=== PATIENT | male | born 1950 | race Caucasian/White ===

== ENCOUNTER 2020-01-19 08:26 | Outpatient (CLI) | payer MEDICARE, SELFPAY ==
--- NOTE | ~2020-01-19 | CT_ITS ---
EXAMINATION: CT abdomen pelvis wo con DATE: 01/19/2020 09:01 INDICATION: Gross hematuria TECHNIQUE: Computed tomography (CT) of the abdomen and pelvis was performed without intravenous contr ast. Automated exposure control and iterative reconstruction technique were employed. Exam dose: 116 7.28 mGy-cm total exam DLP. COMPARISON: None. FINDINGS: There is mild discoid atelectasis or scarring in the lower lung zones bilaterally. No pulmo nary infiltrate or consolidation or pulmonary mass lesion is detected. Normal heart size. No pericardial or pleural effusion. Coronary artery calcifications. The liver, gallbladder, bile ducts, spleen are unremarkable. There is pancreatic atrophy. No pancreat ic mass lesion or calcification or pancreatic duct dilatation is evident. Normal morphology of the adrenal glands. No urinary tract calculus or hydroureteronephrosis. No renal space occupying mass lesion is evident. There is extensive calcification of the abdominal aorta and calcification at the origin of the superi or mesenteric and right renal arteries. No abdominal aortic aneurysm. No intraperitoneal or retroperi toneal or pelvic mass lesion or adenopathy or ascites. There is prostate enlargement. There is suggestion of prior TURP; recommend clinical correlation with surgical history. Penile implant device. The urinary bladder appears unremarkable on this limited noncontrast examination. Status post colectomy. Right lower quadrant ileostomy. Small sliding hiatal hernia. Small fat-containing umbilical hernia. No suspicious osteolytic or osteoblastic lesions are noted. Degenerative change of the thoracic and lumbar spine. Status post posterior and interbody spinal fusion at L4-L5. IMPRESSION: Reviewed, dictated and finalized at Location A. Reviewed, dictated and finalized at location B. IMPRESSION:
--- NOTE | ~2020-01-19 | XR_ITS ---
XR abdomen/kub 1V DATE: 01/19/2020 08:59 INDICATION: Gross hematuria TECHNIQUE: AP projection, 2 views COMPARISON: 01/19/[address] abdomen pelvis FINDINGS: Status post interbody and posterior spinal fusion at L4-5. Penile implant. The psoas shadows are intact. No visceromegaly is evident. The bowel gas pattern is unremarkable, wit hout evidence of obstruction. Degenerative changes of the thoracic and lumbar spine. IMPRESSION: Nonspecific abdomen Reviewed, dictated and finalized at Location A. Reviewed, dictated and finalized at location B. IMPRESSION: Nonspecific abdomen
== END 2020-01-19 08:27 | disposition home or self-care (01) ==
LOC: ANHIMG 08:34
PROVIDERS: PCP Internal Medicine; Visit Provider Nurse Practitioner Adult Health
DX: R31.0 Gross hematuria (principal); N40.0 Benign prostatic hyperplasia without lower urinary tract symptoms; K44.9 Diaphragmatic hernia without obstruction or gangrene
CPT/HCPCS: 74018; 74176

== ENCOUNTER 2020-01-31 13:30 | Outpatient (CLI) | payer MEDICARE, SELFPAY ==
[2020-01-31 13:58] LABS: Basophils Percent Auto 0.3 % (0.2-1.2); Eosinophils Percent Auto 0.3 % (0-4.4); Hematocrit 42.9 % (42.0-52.0); Hemoglobin 14.4 g/dL (14.0-18.0); Immature Granulocyte Absolute 0.06 K/mm3 (0.00-0.031); Immature Granulocyte Percent A 0.4 % (0-0.5); Lymphocytes Absolute Auto 1.95 K/mm3 (0.9-3.2); Lymphocytes Percent Auto 13.4 % (18.3-44.2); Mean Corpuscular HGB Conc 33.6 g/dl (32-36); Mean Corpuscular Hemoglobin 28.5 pg (26-34); Mean Platelet Volume 9.9 fl (7.4-10.4); Monocytes Absolute Auto 1.7 K/mm3 (0.1-0.6); Monocytes Percent Auto 11.3 % (2.6-8.5); Neutrophils Absolute Auto 10.8 K/mm3 (1.3-6.7); Neutrophils Percent Auto 74.3 % (45.5-73.1); Platelet Count Result 183 k/mm3 (150-375); Red Blood Count 5.05 M/mm3 (4.6-6.20); Red Cell Distribution Width 13.6 % (11.5-14.5); White Blood Count 14.6 K/mm3 (4.5-10.0)
[2020-01-31 14:08] LABS: Chloride 95 mmol/L (98-107)
[2020-01-31 14:09] LABS: Lactic Acid 1.2 mmol/L (0.7-2.1)
[2020-01-31 14:13] LABS: Alanine Aminotransferase 40 U/L (4-50); Albumin Level 4.4 g/dL (3.5-5.1); Alkaline Phosphatase 88 U/L (38-126); Amylase 48 U/L (30-110); Anion Gap 9 mmol/L (8-16); Aspartate Amino Transferase 26 U/L (17-59); Bilirubin,Total 1.7 mg/dL (0.2-1.3); Blood Urea Nitrogen 14 mg/dL (9-20); Carbon Dioxide 29 mmol/L (22-30); Estimated Glomerular Filt Rate 60; Glucose 204 mg/dL (75-110); Lipase 55 U/L (23-300); Potassium 4.4 mmol/L (3.4-5.0); Sodium 133 mmol/L (137-145)
[2020-01-31 14:22] LABS: NT Pro B Type Natriuretic Pept 119 PG/ML (5-100); Troponin I < 0.012 ng/mL (0.000-0.034)
== END 2020-01-31 13:31 | disposition home or self-care (01) ==
PROVIDERS: PCP Internal Medicine; Visit Provider Internal Medicine
DX: N39.0 Urinary tract infection, site not specified (principal); R06.02 Shortness of breath
CPT/HCPCS: 36415; 80053; 82150; 83605; 83690; 83880; 84484; 85025

== ENCOUNTER 2020-02-05 10:14 | Outpatient (RCR) | payer MEDICARE, SELFPAY ==
[2020-02-05 11:20] LABS: Anion Gap 9 mmol/L (8-16); Blood Urea Nitrogen 12 mg/dL (9-20); Calcium 9.2 mg/dL (8.4-10.2); Carbon Dioxide 24 mmol/L (22-30); Chloride 98 mmol/L (98-107); Estimated Glomerular Filt Rate 54; Glucose 182 mg/dL (75-110); Potassium 4.5 mmol/L (3.4-5.0); Sodium 131 mmol/L (137-145)
== END 2020-05-05 23:59 | disposition home or self-care (01) ==
LOC: ANHLAB 10:14
PROVIDERS: PCP Internal Medicine; Visit Provider Internal Medicine
DX: N39.0 Urinary tract infection, site not specified (principal)
CPT/HCPCS: 36415; 80048

== ENCOUNTER 2020-02-26 10:11 | Outpatient (CLI) | payer MEDICARE, SELFPAY ==
[2020-02-26 11:19] LABS: Add Urine Microscopic? YES; Appearance Urine Clear (Clear); Bacteria Urine Trace /hpf; Bilirubin Urine Negative (Negative); Blood Urine Negative (Negative); Color Urine Yellow (Yellow); Glucose Urine UA 2+ mg/dL (Negative); Ketones Urine Negative (Negative); Leukocyte Esterase Ur Negative LEU/UL (Negative); Mucus Urine Rare /lpf; Nitrate Urine Negative (Negative); Protein Urine Negative (Negative); RBC Urine 0-2 /hpf (0-2); Specific Grav Ur 1.018 (1.001-1.035); Squamous Epithelial Cell Urine Rare /hpf (Few); Urobilinogen Urine Negative mg/dL (<2.0); WBC Urine 0-3 /hpf
[2020-02-26 13:21] LABS: Alanine Aminotransferase 24 U/L (4-50); Alkaline Phosphatase 70 U/L (38-126); Anion Gap 9 mmol/L (8-16); Aspartate Amino Transferase 24 U/L (17-59); Bilirubin,Total 0.8 mg/dL (0.2-1.3); Blood Urea Nitrogen 14 mg/dL (9-20); Calcium 8.8 mg/dL (8.4-10.2); Carbon Dioxide 26 mmol/L (22-30); Chloride 99 mmol/L (98-107); Estimated Glomerular Filt Rate > 60; Glucose 200 mg/dL (75-110); Potassium 4.4 mmol/L (3.4-5.0); Sodium 134 mmol/L (137-145)
== END 2020-02-26 10:12 | disposition home or self-care (01) ==
PROVIDERS: PCP Internal Medicine; Visit Provider Internal Medicine
DX: N39.0 Urinary tract infection, site not specified (principal); E80.6 Other disorders of bilirubin metabolism
CPT/HCPCS: 36415; 80053; 81001

== ENCOUNTER 2020-03-26 10:40 | Outpatient (CLI) | payer MEDICARE, SELFPAY ==
--- NOTE | ~2020-03-26 | XR_ITS ---
XR lumbar spine 2-3V DATE: 03/26/2020 11:13 INDICATION: Low back pain radiating to left buttock TECHNIQUE: AP, lateral, coned lateral lumbosacral views COMPARISON: None FINDINGS: Status post posterior and interbody spinal surgical fusion at L4-5. Diffuse idiopathic skeletal hyperostosis of the lumbar and lower thoracic spine. Moderate osteopenia. No fracture, bone destruction or spondylolisthesis is evident. The lumbar pedicles appear intact. The sacroiliac joints appear normal. IMPRESSION: Status post interbody and posterior surgical fusion at L4-5 Diffuse idiopathic skeletal hyperostosis of the lower thoracic and lumbar spine Osteopenia Reviewed, dictated and finalized at location A. E TRAVEL
== END 2020-03-26 10:41 | disposition home or self-care (01) ==
LOC: ANHIMG 10:45
PROVIDERS: PCP Internal Medicine; Visit Provider Internal Medicine
DX: M54.5 Low back pain (principal); Z98.1 Arthrodesis status; M85.88 Other specified disorders of bone density and structure, other site
CPT/HCPCS: 72100

== ENCOUNTER → 2020-04-10 10:44 | Outpatient (CLI) | payer MEDICARE, SELFPAY ==
--- NOTE | ~2020-04-10 | MR_ITS ---
EXAMINATION: MR lumbar spine wo con DATE: 04/10/2020 11:46 INDICATION: Lumbar radiculopathy. Low back pain. Left hip pain. TECHNIQUE: Magnetic resonance imaging (MRI) of the lumbar spine was performed without intravenous con trast. Sequences included sagittal T2-weighted FSE, sagittal STIR FSE, sagittal T1-weighted FSE, and axial T2-weighted FSE. COMPARISON: Lumbar spine radiographs 03/26/2020 FINDINGS: There is 3 degrees levocurvature of lumbar spine. Vertebral body heights are normal. There are changes of anterior and posterior fusion procedures at L4-L5 with interbody device and pedicle sc rews. There is mildly decreased disc height at L3-L4 and moderately decreased disc height at L5-S1. O sseous central spinal canal is developmentally small at L3 and L4. The distal spinal cord signal inte nsity is normal. The conus medullaris is at L1. The following disc levels are specifically discussed: L1-L2: The disc is bulging. There is moderate bilateral facet joint osteoarthritis. There is moderate neural foraminal stenosis. There is mild central canal stenosis. L2-L3: The disc is bulging. There is severe right and moderate left facet joint osteoarthritis. There is mild right neural foraminal stenosis. There is mild central canal stenosis. L3-L4: The disc is bulging. There is severe bilateral facet joint osteoarthritis. There is moderate r ight and mild left neural foraminal stenosis. There is mild central canal stenosis. L4-L5: There is mild bilateral facet joint hypertrophy. There is moderate right and mild left neural foraminal stenosis. There is mild central canal stenosis. L5-S1: The disc is bulging. There is mild bilateral facet joint osteoarthritis. There is moderate jany ateral neural foraminal stenosis. There is mild central canal stenosis. IMPRESSION: 1. Moderate lumbar spondylosis. 2. Anterior and posterior fusion procedures at L4-L5. Reviewed, dictated and finalized at location A. STOCK HANDLER
== END ==
PROVIDERS: Visit Provider Nurse Practitioner Family
DX: M47.26 Other spondylosis with radiculopathy, lumbar region (principal); Z98.1 Arthrodesis status
CPT/HCPCS: 72148

== ENCOUNTER 2020-09-17 13:03 | Outpatient (CLI) | payer MEDICARE, SELFPAY ==
--- NOTE | ~2020-09-17 | US_ITS ---
EXAMINATION: US venous doppler LE RT EXAM DATE: 09/17/2020 13:38 INDICATION: Right calf pain. TECHNIQUE: Multiple grayscale, color flow and Doppler images of the right lower extremity deep venous system were obtained and reviewed. There is no prior study for comparison. FINDINGS: The right common femoral, femoral and profunda veins demonstrate normal color flow, respira tory variation, augmentation and compressibility. Compressibility, color flow confirmed within the r ight popliteal, posterior tibial, peroneal, and greater saphenous veins. There is a small Sumner's cy st measuring 2.1 x 2.8 x 0.8 cm IMPRESSION: 1. No right lower extremity deep venous thrombosis. 2. Small Sumner's cyst. Reviewed, dictated and finalized at location B.
== END 2020-09-17 13:04 | disposition home or self-care (01) ==
PROVIDERS: PCP Internal Medicine; Visit Provider Internal Medicine
DX: M79.661 Pain in right lower leg (principal); M71.21 Synovial cyst of popliteal space [Baker], right knee
CPT/HCPCS: 93971

== ENCOUNTER 2020-11-12 09:26 | Outpatient (CLI) | payer MEDICARE, SELFPAY ==
--- NOTE | 2020-11-12 | EST_ITS ---
Patient Info Name: Giorgio Pope Age: 70 years : 1950 Gender: Male Ht: 67 in Wt: 226 lbs BSA: 2.24 m2 HR: 78 bpm BP: 135 / 82 mmHg Heart Rhythm: Sinus Arrhythmia Exam Date: 11/12/2020 9:44 AM Exam Location: [facility] Stress Patient Status: Outpatient Admit Date: 11/12/2020 Staff Ordering Physician: JaquanNatalia MD Attending Provider: JaquanNatalia MD Exercise Technologist: Briana Liang CT Exercise Physician: Fina Walker MD Exam Type: CA stress test treadmill Study Info An exercise stress test was performed. Summary 1. Slightly sub maximal stress test with patient reaching 83% of predicted maximal heart rate, but no ischemic EKG changes at this level of exercise. 2. Hypertensive blood pressure response, reaching 209/83 mmHg. 3. No exercise-induced chest pain. 4. Very poor exercise tolerance, only 3 minutes of exercise, possibly due to hypertension or other problems. 5. Consider further testing (stress Lexiscan? Echo?) if heart disease is clinically suspected. Protocol: Anival Stress ECG Details Stage: REST Duration (min): 1 min : 28 sec Speed (mph): 0.0 Grade (%): 0 HR (bpm): 77 SBP (mmHg): 135 DBP (mmHg): 82 METS: --- Stage: REST Duration (min): 6 min : 39 sec Speed (mph): 0.0 Grade (%): 0 HR (bpm): 78 SBP (mmHg): 135 DBP (mmHg): 82 METS: --- Stage: STAGE 1 Duration (min): 1 min : 0 sec Speed (mph): 1.7 Grade (%): 10 HR (bpm): 103 SBP (mmHg): 135 DBP (mmHg): 82 METS: --- Stage: STAGE 1 Duration (min): 2 min : 0 sec Speed (mph): 1.7 Grade (%): 10 HR (bpm): 115 SBP (mmHg): 135 DBP (mmHg): 82 METS: --- Stage: STAGE 1 Duration (min): 3 min : 0 sec Speed (mph): 1.7 Grade (%): 10 HR (bpm): 124 SBP (mmHg): 209 DBP (mmHg): 83 METS: --- Stage: RECOVERY Duration (min): 0 min : 59 sec Speed (mph): 0.0 Grade (%): 0 HR (bpm): 107 SBP (mmHg): 209 DBP (mmHg): 83 METS: --- Stage: RECOVERY Duration (min): 1 min : 59 sec Speed (mph): 0.0 Grade (%): 0 HR (bpm): 89 SBP (mmHg): 209 DBP (mmHg): 83 METS: --- Stage: RECOVERY Duration (min): 2 min : 59 sec Speed (mph): 0.0 Grade (%): 0 HR (bpm): 83 SBP (mmHg): 199 DBP (mmHg): 73 METS: --- Stage: RECOVERY Duration (min): 3 min : 13 sec Speed (mph): 0.0 Grade (%): 0 HR (bpm): 83 SBP (mmHg): 199 DBP (mmHg): 73 METS: --- Rest HR: 78 bpm Peak HR: 124 bpm Rest Sys BP: 135 mmHg Peak Sys BP: 209 mmHg Max Pred HR: 148 bpm % Max Pred HR: 84 % Target HR: 126 bpm Max RPP: 25,916 bpm*mmHg Laws Score: 0 Target HR Summary: Patient's target heart rate was not achieved due to fatigue BP Response: Patient exhibited a hypertensive response with stress Termination Reason: Dyspnea Cardiac Symptoms: Dyspnea Max ST Seg Deviation: 0.70 mm Total Time: 3 min : 0 sec Rest Ahuja BP: 82 mmHg Peak Ahuja BP: 83 mmHg Angina Score: None Total
== END 2020-11-12 09:27 | disposition home or self-care (01) ==
PROVIDERS: PCP Internal Medicine; Visit Provider Internal Medicine
DX: I25.10 Atherosclerotic heart disease of native coronary artery without angina pectoris (principal); E11.9 Type 2 diabetes mellitus without complications
CPT/HCPCS: 93017

== ENCOUNTER → 2021-06-24 13:54 | Outpatient (CLI) | payer MEDICARE, SELFPAY ==
--- NOTE | ~2021-06-24 | XR_ITS ---
EXAMINATION: XR shoulder RT min 2V EXAM DATE: 06/24/2021 14:47 INDICATION: Shoulder pain, bilateral TECHNIQUE: The following right shoulder projections obtained: frontal projection with internal rotati on, frontal projection with external rotation, Grashey, and axillary (4+ views). Correlation is made to contralateral shoulder same date. FINDINGS: No evidence of right shoulder rotator cuff calcific tendinosis. There is minimal glenohu meral joint, moderate acromioclavicular joint primary osteoarthritis. There are no acute fractures or dislocations identified. There is no subcutaneous gas. The soft tissue is unremarkable. There ar e no radiopaque foreign bodies. IMPRESSION: Moderate right acromioclavicular osteoarthritis. Reviewed, dictated and finalized at location A. RANCE ACCOUNT EXECUTIVE
--- NOTE | ~2021-06-24 | XR_ITS ---
EXAMINATION: XR shoulder LT min 2V EXAM DATE: 06/24/2021 14:47 INDICATION: Shoulder pain, bilateral . TECHNIQUE: The following left shoulder projections obtained: frontal projection with internal rotatio n, frontal projection with external rotation, Grashey, and axillary (4+ views). Correlation is made t o contralateral shoulder same date. FINDINGS: No evidence of left shoulder rotator cuff calcific tendinosis. There is mild glenohumera l joint, mild to moderate acromioclavicular joint primary osteoarthritis. There are no acute fracture s or dislocations identified. There is no subcutaneous gas. The soft tissue is unremarkable. Ther e are no radiopaque foreign bodies. IMPRESSION: Mild to moderate left acromioclavicular, mild glenohumeral osteoarthritis. Reviewed, dictated and finalized at location A. NESS BANKING MANAGER IMPRESSION: Mild to moderate left acromioclavicular, mild glenohumeral osteoart hritis.
== END ==
PROVIDERS: PCP Internal Medicine; Visit Provider Nurse Practitioner Family
DX: M19.012 Primary osteoarthritis, left shoulder (principal); M19.011 Primary osteoarthritis, right shoulder
CPT/HCPCS: 73030

== ENCOUNTER → 2021-07-01 12:47 | Outpatient (CLI) | payer MEDICARE, SELFPAY ==
--- NOTE | ~2021-07-01 | MR_ITS ---
EXAMINATION: MR lumbar spine wo con DATE: 07/01/2021 13:53 INDICATION: Lumbar radiculopathy. Low back pain. TECHNIQUE: Magnetic resonance imaging (MRI) of the lumbar spine was performed without intravenous con trast. Sequences included sagittal T2-weighted FSE, sagittal T2-weighted FS FSE, sagittal T1-weighted FSE, and axial T2-weighted FSE. COMPARISON: Lumbar spine MRI 04/10/2020 FINDINGS: There is 4 degrees levocurvature of thoracolumbar spine. There is 2 mm retrolisthesis of L3 on L4. Vertebral body heights are normal. There are changes of anterior and posterior fusion procedu res at L4-L5 with interbody devices and pedicle screws. There is mildly decreased disc height at L3-L 4 and L5-S1. The distal spinal cord signal intensity is normal. The conus medullaris is at L1. The fo llowing disc levels are specifically discussed: L1-L2: The disc does not extend beyond the endplate margin. There is moderate bilateral facet joint o steoarthritis. There is no neural foraminal stenosis. There is no central canal stenosis. L2-L3: There is a right foraminal extrusion. There is severe right and moderate left facet joint oste oarthritis. There is mild right neural foraminal stenosis. There is no central canal stenosis. L3-L4: The disc is bulging. There is severe bilateral facet joint osteoarthritis. There is moderate r ight and mild left neural foraminal stenosis. There is mild central canal stenosis. L4-L5: There is moderate bilateral facet joint hypertrophy. There is mild bilateral neural foraminal stenosis. There is mild central canal stenosis. L5-S1: The disc is bulging. There is severe bilateral facet joint osteoarthritis. There is moderate b ilateral neural foraminal stenosis. There is mild central canal stenosis. IMPRESSION: 1. Moderate lumbar spondylosis, stable from 04/10/2020. 2. Anterior and posterior fusion procedures at L4-L5. Reviewed, dictated and finalized at location A.
== END ==
PROVIDERS: PCP Internal Medicine; Visit Provider Nurse Practitioner Family
DX: M47.26 Other spondylosis with radiculopathy, lumbar region (principal); Z98.1 Arthrodesis status
CPT/HCPCS: 72148

== ENCOUNTER 2022-12-07 12:40 | Outpatient (CLI) | payer MEDICARE, SELFPAY ==
--- NOTE | ~2022-12-07 | XR_ITS ---
EXAMINATION:XR cervical spine 4-5V DATE: 12/07/2022 13:00 INDICATION: Neck pain TECHNIQUE: AP, lateral, lateral swimmers and odontoid views of the cervical spine are provided. COMPARISON: None FINDINGS: There are 2 mm of anterolisthesis of C4 on C5. There are changes of anterior fusion at C3-4 . The odontoid process is intact. No fracture is identified. The vertebral body heights are maintaine d. There is moderate loss of intervertebral disc space height at C4-5 and C5-6. Small degenerative os teophytes project from the anterior endplates of multiple vertebral bodies. There is multilevel sever e facet and uncovertebral joint osteoarthritis. Prevertebral soft tissues are normal. IMPRESSION: 1. Moderate to severe cervical spondylosis with changes of anterior fusion at C3-4, without acute oss eous findings. Reviewed, dictated and finalized at location A. IMPRESSION: 1. Moderate to severe cervical spondylosis with changes of anterior fusion at C 3-4, without acute osseous findings.
== END 2022-12-07 12:41 | disposition home or self-care (01) ==
PROVIDERS: PCP Internal Medicine; Visit Provider Internal Medicine
DX: G44.86 Cervicogenic headache (principal); M47.892 Other spondylosis, cervical region; Z98.1 Arthrodesis status
CPT/HCPCS: 72050

== ENCOUNTER 2023-05-20 12:23 | Observation (INO) | payer MEDICARE, SELFPAY ==
[2023-05-20] VITALS (21 sets, daily range): BP systolic 95–153; BP diastolic 44–78; PULSE 72–101; RESP 16–30; TEMP 37–38.4; O2SAT 94–100; BMI 33.6
--- NOTE | ~2023-05-20 | XR_ITS ---
EXAMINATION: XR chest 2V DATE: 05/22/2023 11:30 INDICATION: Persistent cough TECHNIQUE: PA and lateral views of the chest are obtained. COMPARISON: 05/20/2023 FINDINGS: The lungs are free of acute opacities. No pleural effusion or pneumothorax. The cardiomedia stinal silhouette is normal. There is moderate thoracic spondylosis. IMPRESSION: 1. No acute cardiopulmonary abnormality. Reviewed, dictated and finalized at location F. BOLIC SPECIALIST
--- NOTE | ~2023-05-20 | CT_ITS ---
EXAMINATION: CT abdomen pelvis wo con DATE: 05/20/2023 18:01 INDICATION: Localized abdominal pain TECHNIQUE: Computed tomography (CT) of the abdomen and pelvis was performed without intravenous contr ast. Automated exposure control and iterative reconstruction technique were employed. The dose-length product was 887.66 mGy-cm. COMPARISON: 01/19/2020 FINDINGS: Mild atelectasis in the bilateral lower lobes. Heart size is normal. Small amount of atherosclerotic coronary artery calcific location. No pericardial or pleural effusion. Mild diffuse hepatic steatosis . Gallbladder, spleen and bilateral adrenal glands are normal. There is diffuse fatty atrophy of the pancreas. Kidneys and ureters are normal with no urolithiasis, hydroureteronephrosis or perinephric/u reteral stranding. And bladder is normal. Prostatomegaly. Penile prosthesis with reservoir in the lef t hemipelvis deep to the inguinal canal. Status post colectomy with right lower quadrant and ileostom y. No bowel obstruction. No free intraperitoneal gas or fluid. No pathologically enlarged abdominal o r pelvic lymphadenopathy. Small fat-containing umbilical hernia. Combined instrumented L4-L5 anterior and posterior spinal fusion. IMPRESSION: 1. No acute intra-abdominal/pelvic process. 2. Postoperative changes as detailed above. 3. Small fat-containing umbilical hernia. 4. Prostatomegaly. 5. Diffuse hepatic steatosis. Reviewed, dictated and finalized at location A. MAPPING TECHNICIAN
--- NOTE | ~2023-05-20 | XR_ITS ---
XR chest 2V DATE: 05/20/2023 13:14 INDICATION: Cough, shortness of breath TECHNIQUE: AP and lateral views COMPARISON: None FINDINGS: Heart size is within normal range. Is aortic arch calcification and mild aortic unfolding. No hilar or mediastinal enlargement is detected. No pulmonary infiltrate or consolidation, pleural effusion or pulmonary vascular congestion or pneumo thorax is detected. Degenerative spurring of the thoracic and particularly lumbar spine. IMPRESSION: No active cardiopulmonary disease Aortic atherosclerosis Reviewed, dictated and finalized at location L. CAL INSTRUCTOR
--- NOTE | 2023-05-20 12:32 | ECG_ITS ---
Measurements Intervals [place]cher Rate: 88 P: 11 TN: 173 QRS: 96 QRSD: 142 T: 28 QT: 386 QTc: 469 Interpretive Statements SINUS RHYTHM RIGHT BUNDLE BRANCH BLOCK [120+ ms QRS DURATION, UPRIGHT V1, 40+ ms S IN I/aVL/V4/V5/V6] NO PREVIOUS ECG AVAILABLE FOR COMPARISON Electronically Signed On 05-20-2023 14:06:25 JEWEL HOLE CORNERER by Mike Sanchez M.D.
--- NOTE | 2023-05-20 12:45 | ED.GENADULT ---
HPI - General Adult General Chief complaint: Weakness Stated complaint: xtreme weakness, cough x 1 Time Seen by Provider: 05/20/23 12:29 History of Present Illness HPI narrative: Patient is a 72-year-old male who presents c/o weakness and cough. Cough is been ongoing for 1 month. Productive of yellow sputum. He has become more short of breath and weak over the last 1 week. He reports he had difficulty getting up and even walking to his bathroom today. When he went to his doctor's office he almost lost consciousness. Reports poor oral intake today but otherwise feels like he has been eating normally. No chest pain or chest pressure. No history of COPD. No known sick contacts. He has not been to an urgent care received any other testing over last month. No alleviating factors. Related Data Home Medications Medication Instructions Recorded Confirmed amlodipine 2.5 mg tablet 2.5 mg PO DAILY 05/20/23 05/20/23 aspirin 81 mg capsule 81 mg PO DAILY 05/20/23 05/20/23 carvedilol 6.25 mg tablet 6.25 mg PO BID 05/20/23 05/20/23 cholecalciferol (vitamin D3) 50 50 mcg PO DAILY 05/20/23 05/20/23 mcg (2,000 unit) capsule (Vitamin D3) dapagliflozin propanediol 10 mg 10 mg PO DAILY 05/20/23 05/20/23 tablet (Farxiga) glucagon 1 mg/0.2 mL subcutaneous 1 mg subcut Q20M PRN Hypocalcemia 05/20/23 05/20/23 solution (Gvoke) insulin aspart U-100 100 unit/mL sliding scale dose subcut 05/20/23 (3 mL) subcutaneous pen (Novolog FlexPen U-100 Insulin aspart) insulin glargine 100 unit/mL (3 20 unit subcut HS 05/20/23 05/20/23 mL) subcutaneous pen (Basaglar KwikPen U-100 Insulin) magnesium oxide 400 mg PO BID 05/20/23 05/20/23 omeprazole 20 mg capsule,delayed 20 mg PO DAILY 05/20/23 05/20/23 release valsartan 160 mg tablet 160 mg PO DAILY 05/20/23 05/20/23 Allergies Allergy/AdvReac Type Severity Reaction Status Date / Time iohexol Allergy Other Verified 05/20/23 12:40 [From contrast - CT, X-RAY] Review of Systems Review of Systems: All systems reviewed & are unremarkable except as noted in HPI and below Constitutional: Constitutional: Denies chills, Reports fatigue, Reports fever(s) and Reports weakness ENT: Denies nasal congestion and Denies sore throat Cardiovascular: Cardiovascular: Reports no additional cardiovascular complaints Respiratory: Respiratory: Reports cough, Reports dyspnea and Denies wheezing Gastrointestinal: Gastrointestinal: Reports no additional gastrointestinal complaints Genitourinary: Genitourinary: Reports no additional male genitourinary complaints Musculoskeletal: Musculoskeletal: Reports no additional musculoskeletal complaints [facility] Past Medical History Medical History (Updated 05/20/23 @ 21:10 by Isai Fox MD) Diabetes GERD (gastroesophageal reflux disease) H/O: HTN (hypertension) Ulcerative colitis Surgical History Surgical History (Updated 05/20/23 @ 21:08 by Isai Fox MD) H/O colectomy History of penile implant Ileostomy present Exam Narrative: GENERAL: Well-appearing, well-nourished, and in no acute distress. HEAD: Normocephalic, atraumatic. ENT: Mucous membranes moist. NECK: Supple. CHEST: Clear to auscultation. Mild tachypena. HEART: Regular rate and rhythm. Normal peripheral pulses. ABDOMEN: Soft, nontender, nondistended. EXTREMITIES: Normal range of motion. No edema. SKIN: Warm, dry, no rash. NEURO: Alert and oriented x3. PSYCH: Normal mood and affect. Course Course Emergency Course: patient is having high output diarrhea. He seems very dehydrated. Still orthostatic after 2 L of fluid. Admit for observation. Vital Signs Vital signs: Vital Signs Temperature 101.2 F H 05/20/23 12:27 Pulse Rate 89 05/20/23 12:27 Respiratory Rate 30 H 05/20/23 12:27 Blood Pressure 136/68 05/20/23 12:27 Pulse Oximetry 99 05/20/23 12:27 Oxygen Delivery Nasal Cannula 05/20/23 12:27 Oxygen Flow Rate 2 02/
[2023-05-20] MEDS: ACETAMINOPHEN 500 MG TABLET 1000 MG PO (12:52)
[2023-05-20] MEDS: SODIUM CHLORIDE 0.9% IV 1,000 ML 999 ML IV CONT ×2 (12:52→15:00)
[2023-05-20 13:16] LABS: Basophils Percent Auto 0.4 % (0.2-1.2); Eosinophils Percent Auto 0.2 % (0-4.4); Hematocrit 46.2 % (42.0-52.0); Immature Granulocyte Absolute 0.03 K/mm3 (0.00-0.031); Immature Granulocyte Percent A 0.4 % (0-0.5); Lymphocytes Absolute Auto 2.14 K/mm3 (0.9-3.2); Lymphocytes Percent Auto 26.1 % (18.3-44.2); Mean Corpuscular HGB Conc 32.5 g/dl (32-36); Mean Corpuscular Hemoglobin 28.1 pg (26-34); Mean Corpuscular Volume 86.7 fl (80-100); Monocytes Absolute Auto 0.9 K/mm3 (0.1-0.6); Monocytes Percent Auto 11.1 % (2.6-8.5); Neutrophils Absolute Auto 5.1 K/mm3 (1.3-6.7); Neutrophils Percent Auto 61.8 % (45.5-73.1); Platelet Count Result 164 k/mm3 (150-375); Red Blood Count 5.33 M/mm3 (4.6-6.20); Red Cell Distribution Width 13.9 % (11.5-14.5); White Blood Count 8.2 K/mm3 (4.5-10.0)
[2023-05-20 13:22] LABS: Influenza A QL RT-PCR Negative (Negative); Influenza B QL RT-PCR Negative (Negative); RSV RNA, RT-PCR Negative (Negative); SARS-CoV-2 RNA PCR Negative (Negative)
[2023-05-20 13:28] LABS: Alanine Aminotransferase 29 U/L (6-50); Albumin Level 4.2 g/dL (3.5-5.1); Alkaline Phosphatase 83 U/L (38-126); Anion Gap 16 mmol/L (8-16); Aspartate Amino Transferase 34 U/L (17-59); Bilirubin,Total 1.8 mg/dL (0.2-1.3); Blood Urea Nitrogen 18 mg/dL (9-20); Calcium 9.3 mg/dL (8.4-10.2); Carbon Dioxide 17 mmol/L (22-30); Chloride 98 mmol/L (98-107); Estimated CRCL calculation 44 ml/min; Estimated Glomerular Filt Rate 46; Glucose 202 mg/dL (65-110); Potassium 4.5 mmol/L (3.4-5.0); Sodium 131 mmol/L (137-145)
--- NOTE | 2023-05-20 14:41 | PC.NURSE ---
Pt to XRAY via stretcher at this time.
[2023-05-20 14:43] LABS: Immunochemical Fecal Occult Bl Negative (N)
[2023-05-20 14:44] LABS: IFOB Positive Control Positive
[2023-05-20 14:56] LABS: Toxigenic C. Diff NEGATIVE (NEGATIVE)
--- NOTE | 2023-05-20 17:58 | PC.NURSE ---
Pt to CT scan via stretcher at this time.
[2023-05-20] MEDS: SODIUM CHLORIDE 0.9% IV 1,000 ML 125 ML IV CONT (18:55)
--- NOTE | 2023-05-20 19:02 | PC.NURSE ---
BS 156
[2023-05-20 19:03] LABS: Glucose Point of Care 156 mg/dl (65-105)
--- NOTE | 2023-05-20 19:07 | PC.NURSE ---
Assumed care of pt from MARK Pike at this time.
--- NOTE | 2023-05-20 21:55 | PC.NURSE ---
ASSISTED PT W EMPTYING OSTOMY AT THIS TIME. PT HEAD OF BED LOWERED PER REQUEST. TRI CLINICAL DATA PROGRAMMER NOTIFIED THIS RN OF BED PLACEMENT AT THIS TIME.
--- NOTE | 2023-05-20 22:23 | PM.IMHP ---
H&P: HPI History of Present Illness Date/Time: 05/20/23 17:45 Chief Complaint: Near syncope. Narrative: This is a very pleasant 72-year-old gentleman with ulcerative colitis status post total colectomy, hypertension, hyperlipidemia, type 2 diabetes mellitus, chronic kidney disease stage 3, hypothyroidism, and gastroesophageal reflux disease who presented to the emergency department via EMS from his doctor's office for evaluation after a near syncopal episode. He had upper respiratory symptoms several weeks ago and took a Z-James with some improvement however he continues to have a lingering cough productive of yellow phlegm. Today he had appointment with his primary care provider for follow-up and while at that appointment he had a near syncopal episode when he stood up. Orthostatic vital signs were positive and he was sent to the emergency department. Patient mentions that over the last 3 days or so he has had a change in his ostomy output; it is usually soft and brown though he is now passing large amounts of dark green/brown liquid stool. His abdomen has been a bit distended. He has not been passing much gas. He admits that he has felt increasingly weak the last couple of days and he has been trying to eat and drink to stay hydrated. Some family members were recently sick with food poisoning though he did not have the same meal. He denies fever although his temperature was 101.2? F on arrival to the ED. He also denies chills, sweats, sore throat, chest pain, pleuritic pain, shortness of breath, palpitations, sensations of racing heart, abdominal pain, nausea, vomiting, and dysuria. In the ED: Temperature was 101.2? F . Orthostatic vital signs were positive though blood pressures have improved with 2 L IV fluid bolus. Labs were significant for a WBC count of 8.2, sodium 131, carbon dioxide 17, creatinine 1.50, glucose 202. His stool was negative for occult blood and C diff. He also tested negative for influenza, RSV, and COVID. Chest x-ray showed no acute findings. CT of the abdomen and pelvis showed no acute intra-abdominal/pelvic process. He is being admitted in this setting for IV fluid rehydration and GI consultation. Review of Systems Review of Systems: Twelve systems were reviewed and are negative except for as per HPI. [facility] Past Medical History Medical History (Updated 05/20/23 @ 22:40 by Tsering Burgos PA-C) Chronic kidney disease, stage 3 Gastroesophageal reflux Hyperlipidemia Hypertension Hypothyroidism Type 2 diabetes mellitus Ulcerative colitis Surgical History Surgical History (Updated 05/20/23 @ 22:36 by Tsering Burgos PA-C) History of fusion of cervical spine History of ileostomy History of lumbar laminectomy History of lumbar spinal fusion History of penile implant History of squamous cell carcinoma excision History of total colectomy History of transurethral resection of prostate Family History Family History Other Family history non-contributory Social History Social History (Updated 05/20/23 @ 22:37 by Tsering Burgos PA-C) Social History: Surrogate medical decision maker: Gustabo Huizar, significant other. Code status: Full code. Smoking status: Former smoker Additional smoking assessment comments: Smoked briefly as a young man and quit in his 20s. Alcohol intake: current Alcohol use details: Social alcohol use in moderation. Substance use: never Living arrangements: with family Additional living arrangements comments: Lives with significant other in [place]. Occupation/Education: retired Additional occupation/education comments: Retired from working in construction. Meds Home Medications and Allergies Home Medications Medication Instructions Recorded Confirmed Type amlodipine 2.5 mg tablet 2.5 mg PO DAILY 05/20/23 05/20/23 History aspirin 81 mg capsule 81 mg PO DAILY 05/20/23 05/20/23 History car
[2023-05-20 23:36] LABS: Hemoglobin A1C 7.3 % (<5.7)
[2023-05-20 23:43] LABS: Anion Gap 9 mmol/L (8-16); Blood Urea Nitrogen 20 mg/dL (9-20); Calcium 8.2 mg/dL (8.4-10.2); Carbon Dioxide 21 mmol/L (22-30); Chloride 104 mmol/L (98-107); Estimated CRCL calculation 46 ml/min; Estimated Glomerular Filt Rate 50; Glucose 228 mg/dL (65-110); Magnesium 1.8 mg/dL (1.6-2.3); Potassium 4.3 mmol/L (3.4-5.0); Sodium 134 mmol/L (137-145)
[2023-05-21] VITALS (8 sets, daily range): BP systolic 124–165; BP diastolic 48–73; PULSE 76–93; RESP 18–20; TEMP 36.5–37.2; O2SAT 95–100
[2023-05-21] MEDS: LACTATED RINGERS 1,000 ML 150 ML IV CONT (04:41)
[2023-05-21 07:19] LABS: Hematocrit 41.7 % (42.0-52.0); Hemoglobin 13.6 g/dL (14.0-18.0); Mean Corpuscular HGB Conc 32.6 g/dl (32-36); Mean Corpuscular Hemoglobin 27.9 pg (26-34); Mean Corpuscular Volume 85.5 fl (80-100); Mean Platelet Volume 10.4 fl (7.4-10.4); Platelet Count Result 173 k/mm3 (150-375); Red Blood Count 4.88 M/mm3 (4.6-6.20); Red Cell Distribution Width 14.1 % (11.5-14.5); White Blood Count 6.6 K/mm3 (4.5-10.0)
[2023-05-21 07:33] LABS: Anion Gap 10 mmol/L (8-16); Blood Urea Nitrogen 17 mg/dL (9-20); Calcium 8.4 mg/dL (8.4-10.2); Carbon Dioxide 19 mmol/L (22-30); Chloride 105 mmol/L (98-107); Estimated CRCL calculation 54 ml/min; Estimated Glomerular Filt Rate 59; Glucose 150 mg/dL (65-110); Sodium 134 mmol/L (137-145)
[2023-05-21] MEDS: ROSUVASTATIN 10 MG TABLET 40 MG PO (08:04)
[2023-05-21] MEDS: OMEGA 3 POLYUNSAT FATTY ACIDS 1 GM CAP PO ×2 (08:04→17:01)
[2023-05-21] MEDS: carvediloL 6.25 MG TABLET PO ×2 (08:04→20:26)
[2023-05-21 08:34] LABS: Phosphorus 2.4 mg/dL (2.5-4.5)
--- NOTE | 2023-05-21 09:47 | ADMGEN ---
This patient, Giorgio Pope, was admitted to [facility] Surg Room 306-02. Patient/family oriented to hospital policies and general routines including ID bracelet, bed and alarms, visiting hours, pain management, procedures, bathroom and other care routines, personal items, smoking policy, room service/diet, and visiting hours. Information on how to activate the Rapid Response Team has been discussed. Patient/Family are encouraged to report perceived risks to care and to ask questions if they do not understand what they are told or what they should do.
[2023-05-21] MEDS: guaiFENesin/DEXTROMETHORPHAN 10 ML UDC PO ×3 (10:56→23:13)
[2023-05-21] MEDS: INSULIN ASPART (*BKC) 100 UNITS/ML SUB-Q ×3 (11:26→20:36)
[2023-05-21] MEDS: POLYMYXIN/TRIMETHOPRIM OPHTH 10 ML DROPS 1 DROP EACH EYE ×3 (11:26→23:14)
[2023-05-21 11:51] LABS: Glucose Point of Care 266 mg/dl (65-105)
[2023-05-21] MEDS: LACTATED RINGERS 1,000 ML 100 ML IV CONT (15:29)
--- NOTE | 2023-05-21 17:14 | WPDGICN ---
Assessment and Plan Assessment and plan (1) Diarrhea: Code(s): R19.7 - Diarrhea, unspecified Status: Acute Assessment and Plan: it seems gastroenteritis stool sample negative for cdiff he was orthostatic with more output by ileostomy on fluids, feeling better BP improved home tomorrow if continues to improve (2) Orthostatic hypotension: Code(s): I95.1 - Orthostatic hypotension Status: Acute Assessment and Plan: on admission (3) Near syncope: Code(s): R55 - Syncope and collapse Status: Acute Assessment and Plan: treated (4) Dehydration: Code(s): E86.0 - Dehydration Status: Acute (5) Enteritis: Code(s): K52.9 - Noninfective gastroenteritis and colitis, unspecified Status: Acute Assessment and Plan: probably cause of presentation medical support (6) Acute dehydration: Code(s): E86.0 - Dehydration Status: Acute (7) History of ileostomy: Code(s): Z98.890 - Other specified postprocedural states Status: Acute (8) Qcssg-un-itzgwbj renal failure: Code(s): N17.9 - Acute kidney failure, unspecified; N18.9 - Chronic kidney disease, unspecified Status: Acute GI Consult Note Consult date/time: 05/21/23 17:14 Reason for consult: diarrhea HPI: Giorgio Pope is a 72 year old male with UC s/p colectomy with ileostomy in place at 17 yo (no major GI issues since), also history of hypertension, type 2 diabetes mellitus, chronic kidney disease stage 3, hypothyroidism, and gastroesophageal reflux disease who came to the emergency department via EMS from his doctor's office for evaluation after a near syncopal episode. For last 3 weeks with cough (other family members have been sick), he took a Z-James with some improvement however he continues to have a lingering cough productive of yellow phlegm and last few days also noted more output from ileostomy than usual (at least twice as much). At his doctor office was feeling dizzy and had a near syncopal episode when he stood up. Orthostatic vital signs were positive and he was sent to the emergency department. Also temperature was 101.2? F on arrival to the ED. Orthostatic vital signs were positive though blood pressures improved with 2 L IV fluid bolus. Labs WBC count of 8.2, sodium 131, carbon dioxide 17, creatinine 1.50- improved now, glucose 202. His stool was negative for occult blood and C diff. He also tested negative for influenza, RSV, and COVID. Chest x-ray showed no acute findings. CT of the abdomen and pelvis showed no acute intra-abdominal/pelvic process. He is feeling better now and asking when he can go home. Review of Systems Constitutional: Constitutional: Reports weakness Eyes: Eyes: Denies blurry vision ENT: Reports Normal hearing present Cardiovascular: Cardiovascular: Denies chest pain Respiratory: Respiratory: Reports cough Gastrointestinal: Gastrointestinal: Reports diarrhea Genitourinary: Genitourinary: Denies urinary frequency Musculoskeletal: Musculoskeletal: Denies neck pain Integumentary/Breasts: Skin/Breast: Denies rash Neurologic: Denies Abnormal speech present Psychiatric: Psychiatric: Denies behavioral changes [facility] Past Medical History Medical History (Updated 05/21/23 @ 17:19 by Seun Stephenson MD) Vqplw-dn-oekpzyd renal failure Chronic kidney disease, stage 3 Gastroesophageal reflux Hyperlipidemia Hypertension Hypothyroidism Type 2 diabetes mellitus Ulcerative colitis Surgical History Surgical History (Updated 05/21/23 @ 17:19 by Seun Stephenson MD) History of fusion of cervical spine History of ileostomy History of lumbar laminectomy History of lumbar spinal fusion History of penile implant History of squamous cell carcinoma excision History of total colectomy History of transurethral resection of prostate Family History Family History (Reviewed 05/20/23 @ 22:36 by Jacques
[2023-05-21 17:23] LABS: Glucose Point of Care 288 mg/dl (65-105)
--- NOTE | 2023-05-21 19:10 | PM.IMPN ---
Progress Note: A&P Assessment and Plan (1) Gzpps-xa-voralmr renal failure: Code(s): N17.9 - Acute kidney failure, unspecified; N18.9 - Chronic kidney disease, unspecified Status: Acute (2) History of ileostomy: Code(s): Z98.890 - Other specified postprocedural states Status: Acute (3) Diarrhea: Code(s): R19.7 - Diarrhea, unspecified Status: Acute (4) Orthostatic hypotension: Code(s): I95.1 - Orthostatic hypotension Status: Acute (5) Near syncope: Code(s): R55 - Syncope and collapse Status: Acute (6) Chronic kidney disease, stage 3: Code(s): N18.30 - Chronic kidney disease, stage 3 unspecified Status: Acute (7) Hypothyroidism: Code(s): E03.9 - Hypothyroidism, unspecified Status: Acute (8) Gastroesophageal reflux: Code(s): K21.9 - Gastro-esophageal reflux disease without esophagitis Status: Acute (9) Hyperlipidemia: Code(s): E78.5 - Hyperlipidemia, unspecified Status: Acute (10) Hypertension: Code(s): I10 - Essential (primary) hypertension Status: Acute (11) Type 2 diabetes mellitus: Code(s): E11.9 - Type 2 diabetes mellitus without complications Status: Acute (12) Enteritis: Code(s): K52.9 - Noninfective gastroenteritis and colitis, unspecified Status: Acute (13) Acute dehydration: Code(s): E86.0 - Dehydration Status: Acute Plan Place patient under observation status Continue with current meds Patient received 2 L IV hydration in the ER Patient started on Ringer's lactate 125 cc an hour for aggressive hydration on the floor Patient's renal functions are review which are slowly improving Cut down on IV fluids to Ringer's lactate at 100 cc/hour Strict I&Os Patient has mild hypophosphatemia which is being replaced with the IV potassium phosphate GI consult reviewed and appreciated Patient likely has the signs and symptoms consistent with viral gastroenteritis DC planning home in a.m. if he remains stable and back to his baseline ? Patient seen and examined at bedside during my morning rounds ? Collaborated with patient's nurse at the bedside in detail and addressed all concerns ? Labs, electrolytes, radiology, investigations and test results reviewed ? Consult/Nursing/Ancilliary notes on the chart reviewed and appreciated ? Spoke with patient/family at the bedside and answered all the questions that they had Repeat labs in a.m. Electrolyte replacement as per protocol. Patient will be monitored very closely on the floor. Further recommendations as per the hospital course. I am signing off. Patient's medical care will be taken over by my covering hospitalist attending in am. Time Spent With Patient Time with patient: 25 - 35 minutes Subjective Date/time seen: 05/21/23 19:10 Interval history: Patient seen and evaluated at bedside. Feels a little tired and fatigued but improved after IV hydration. GI evaluated the patient and want to monitor him overnight. Review of Systems Review of Systems: 14 systems were reviewed with pertinent positives and negatives per HPI. Except as documented in the HPI/progress notes, all other systems were reviewed and are negative. All systems reviewed & are unremarkable except as noted in HPI and below Exam Narrative: PHYSICAL EXAMINATION: Vital signs: Please see the chart General physical exam: Pleasant and cooperative with exam, appears to be tired and fatigued Head/eyes: Atraumatic, EOMI, PERRLA ENT: Moist mucous membranes, nasal passages clear Neck: Supple, full range of motion, trachea midline CVS: S1 + S2, regular rate and rhythm, no murmurs Respiratory: Bilaterally fair air entry in both lung [place], mild B/L crackles, symmetric chest expansion, no distress Abdomen: Soft, non-tender, bowel sounds +ve, no organomegaly, + colostomy tube in place draining well Extremities: No clubbing, no cyanosis,
[2023-05-21] MEDS: PANTOPRAZOLE 40 MG TABLET PO (20:27)
[2023-05-21] MEDS: POTASSIUM PHOS,M-BASIC-D-BASIC 20 MMOL in SODIUM CHLORIDE 0.9% IV 250 ML 64.17 MMOL IVPB (20:28)
[2023-05-21 20:37] LABS: Glucose Point of Care 217 mg/dl (65-105)
--- NOTE | 2023-05-21 22:44 | ECHO_ITS ---
Patient Info Name: Giorgio Pope Age: 72 years : 1950 Gender: Male Ht: 67 in Wt: 224 lbs BSA: 2.23 m2 HR: 86 bpm BP: 149 / 56 mmHg Heart Rhythm: Sinus Rhythm Technical Quality: Fair Exam Date: 05/21/2023 9:37 AM Exam Location: Echo Lab Patient Status: Outpatient Admit Date: 05/20/2023 Staff Ordering Physician: Tsering Burgos PA-C Life Scientists: Alma Rosa Cagle RDCS Attending Provider: Reddy Hui MD Referring Physician: Loretta WITT; Exam Type: CA echo doppler color flow Study Info Indications - near syncope, htn, rbbb Complete two-dimensional, color flow and Doppler transthoracic echocardiogram is performed. Summary 1. Complete two-dimensional, color flow and Doppler transthoracic echocardiogram is performed. 2. Left ventricular chamber dimension is normal. 3. Left ventricular systolic function is normal, estimated at 60-65%. 4. The left ventricular diastolic function is grade I diastolic dysfunction. 5. E/e' 12 is mildly elevated. 6. Left atrial chamber dimension is mildly enlarged. 7. The mitral valve has mildly calcified annulus. 8. No pulmonary hypertension, estimated pulmonary arterial systolic pressure is 26 mmHg. Left Ventricle E/e' 12 is mildly elevated. Left ventricular chamber dimension is normal. Left ventricular systolic function is normal, estimated at 60-65%. The left ventricular diastolic function is grade I diastolic dysfunction. Right Ventricle Right ventricular chamber dimension is normal. Right ventricular systolic function is normal. Left Atria Left atrial chamber dimension is mildly enlarged. Right Atria Right atrial chamber dimension is normal. Aortic Valve The aortic valve is trileaflet. There is no aortic valve stenosis. There is no aortic valve regurgitation. Pulmonic Valve There is no pulmonic regurgitation. Mitral Valve The mitral valve has mildly calcified annulus. There is no mitral valve stenosis. There is no mitral valve regurgitation. Tricuspid Valve There is no tricuspid valve regurgitation. No pulmonary hypertension, estimated pulmonary arterial systolic pressure is 26 mmHg. Pericardium/Pleural There is no pericardial effusion. Inferior Vena Cava Normal inferior vena cava with >50% collapse upon inspiration consistent with normal right atrial pressure, 5 mmHg. Aorta The aortic root size at the sinus of Valsalva is normal. Left Ventricular Outflow Tract Name Value Normal LVOT 2D LVOT Diameter 2.2 cm LVOT Doppler LVOT Peak Gradient 4 mmHg LVOT Mean Gradient 2 mmHg LVOT VTI 16 cm LVOT VTI/AV VTI Ratio 0.8 LVOT Stroke Volume 61 ml LVOT CO 12.6 l/min LVOT CI 5.7 l/min/m2 Pulmonic Valve Name Value Normal RVOT Doppler RVOT Peak Gradient 4
[2023-05-22] MEDS: LACTATED RINGERS 1,000 ML 100 ML IV CONT (00:48)
[2023-05-22 06:00] VITALS: BP 125/51; PULSE 73; RESP 20; TEMP 37; O2SAT 94
[2023-05-22] MEDS: POLYMYXIN/TRIMETHOPRIM OPHTH 10 ML DROPS 1 DROP EACH EYE ×2 (06:13→11:31)
[2023-05-22 07:18] LABS: Basophils Percent Auto 0.4 % (0.2-1.2); Eosinophils Absolute Auto 0.2 K/mm3 (0-0.3); Eosinophils Percent Auto 2.4 % (0-4.4); Hematocrit 40.2 % (42.0-52.0); Hemoglobin 13.3 g/dL (14.0-18.0); Immature Granulocyte Absolute 0.02 K/mm3 (0.00-0.031); Immature Granulocyte Percent A 0.3 % (0-0.5); Lymphocytes Percent Auto 39.7 % (18.3-44.2); Mean Corpuscular HGB Conc 33.1 g/dl (32-36); Mean Corpuscular Hemoglobin 28.2 pg (26-34); Mean Corpuscular Volume 85.2 fl (80-100); Mean Platelet Volume 10.3 fl (7.4-10.4); Monocytes Absolute Auto 1.3 K/mm3 (0.1-0.6); Monocytes Percent Auto 18.4 % (2.6-8.5); Neutrophils Absolute Auto 2.7 K/mm3 (1.3-6.7); Neutrophils Percent Auto 38.8 % (45.5-73.1); Platelet Count Result 173 k/mm3 (150-375); Red Blood Count 4.72 M/mm3 (4.6-6.20); Red Cell Distribution Width 13.8 % (11.5-14.5); White Blood Count 7.1 K/mm3 (4.5-10.0)
[2023-05-22 07:25] LABS: Anion Gap 6 mmol/L (8-16); Blood Urea Nitrogen 13 mg/dL (9-20); Calcium 8.5 mg/dL (8.4-10.2); Carbon Dioxide 22 mmol/L (22-30); Chloride 105 mmol/L (98-107); Estimated CRCL calculation 70 ml/min; Estimated Glomerular Filt Rate > 60; Glucose 169 mg/dL (65-110); Phosphorus 2.6 mg/dL (2.5-4.5); Potassium 4.2 mmol/L (3.4-5.0); Sodium 133 mmol/L (137-145)
[2023-05-22 07:35] LABS: Glucose Point of Care 180 mg/dl (65-105)
[2023-05-22 07:55] VITALS: BP 129/67; PULSE 73
[2023-05-22 08:00] VITALS: BP 145/75; PULSE 79
[2023-05-22 08:05] VITALS: BP 146/79; PULSE 86
[2023-05-22 08:14] VITALS: PULSE 86
[2023-05-22] MEDS: OMEGA 3 POLYUNSAT FATTY ACIDS 1 GM CAP PO (08:14)
[2023-05-22] MEDS: ROSUVASTATIN 10 MG TABLET 40 MG PO (08:14)
[2023-05-22] MEDS: carvediloL 6.25 MG TABLET PO (08:14)
[2023-05-22] MEDS: guaiFENesin/DEXTROMETHORPHAN 10 ML UDC PO ×2 (08:15→13:03)
[2023-05-22 11:23] LABS: Glucose Point of Care 288 mg/dl (65-105)
--- NOTE | 2023-05-22 11:24 | PM.DS ---
DS: Admitting Diagnosis Discharge Date 05/22/2023 Admitting Diagnosis Near syncope, orthostatic hypotension, diarrhea, dehydration, chronic kidney disease stage 3, hypertension, type 2 diabetes mellitus, hypothyroidism DS: Discharge Diagnosis Discharge Diagnosis (1) Wklbu-fs-ekiedja renal failure: Code(s): N17.9 - Acute kidney failure, unspecified; N18.9 - Chronic kidney disease, unspecified Status: Acute (2) History of ileostomy: Code(s): Z98.890 - Other specified postprocedural states Status: Acute (3) Diarrhea: Code(s): R19.7 - Diarrhea, unspecified Status: Acute (4) Orthostatic hypotension: Code(s): I95.1 - Orthostatic hypotension Status: Acute (5) Near syncope: Code(s): R55 - Syncope and collapse Status: Acute (6) Chronic kidney disease, stage 3: Code(s): N18.30 - Chronic kidney disease, stage 3 unspecified Status: Acute (7) Hypothyroidism: Code(s): E03.9 - Hypothyroidism, unspecified Status: Acute (8) Gastroesophageal reflux: Code(s): K21.9 - Gastro-esophageal reflux disease without esophagitis Status: Acute (9) Hyperlipidemia: Code(s): E78.5 - Hyperlipidemia, unspecified Status: Acute (10) Hypertension: Code(s): I10 - Essential (primary) hypertension Status: Acute (11) Type 2 diabetes mellitus: Code(s): E11.9 - Type 2 diabetes mellitus without complications Status: Acute (12) Enteritis: Code(s): K52.9 - Noninfective gastroenteritis and colitis, unspecified Status: Acute (13) Acute dehydration: Code(s): E86.0 - Dehydration Status: Acute DS: Summary Hospital Course Reason for hospitalization: Near syncope, orthostatic hypotension, dehydration Hospital Course: 72-year-old male patient was admitted to the hospital due to increased ileostomy she stool output, nausea, near syncope at his doctor's office with orthostatic hypotension. Patient began having the fever and viral symptoms in couple days before hospitalization. Patient received IV fluids which corrected his KEMI. Patient started to feel better eating and drinking well. GI saw patient, stool testing sent, C-Diff negative, remainder pending. Patient reported cough present for a month. Echo showed good EF with grade 1 diastolic dysfunction and enlarged left atria. Lungs clear to auscultation but deep breaths keep causing cough. Ordered repeat CXR and BNP. CXR clear and BNP not elevated given age correction. Patient reported his glucose averages 220+ each day but is higher today after breakfast because his home insulin was not restarted in the hospital. Patient declined additional correction at this time and he has upcoming appointment with endocrinology. Status at Discharge Cognitive/behavioral status at discharge: Awake alert oriented and pleasant Functional status at discharge: independent ambulation Overall status at discharge: patient is back to baseline Time Spent with Patient Time attestation: Total time spent providing and/or coordinating discharge services: 35 minutes Time spent: Greater than 30 minutes Exam Narrative: GENERAL: Well-appearing, well-nourished, and in no acute distress. HEAD: Normocephalic, atraumatic. ENT:? Mucous membranes moist. CHEST: Clear to auscultation.? No respiratory distress. Recurrent cough when taking several deep breaths HEART: Regular rate and rhythm. ? Normal peripheral pulses. ABDOMEN: Soft, nontender, nondistended. Ileostomy bag in place EXTREMITIES: Normal range of motion. No peripheral edema. SKIN: Warm dry normal color NEURO: Alert and oriented x3. PSYCH: Normal mood and affect DS: Data Data Completed and Pending Completed studies during hospitalization: Chest x-ray, abdomen pelvis CT, chest x-ray Labs on day of discharge: Labs from last 24 hours 05/22/23 05/22/23 05/22/23 11:18 07:32 06:24 WBC 7.1 RBC 4.
[2023-05-22] MEDS: INSULIN ASPART (*BKC) 100 UNITS/ML SUB-Q (11:32)
[2023-05-22 12:41] LABS: NT Pro B Type Natriuretic Pept 326 pg/mL (19.9-100)
[2023-05-26 16:15] LABS: Norovirus RNA PCR, Stool NOT DETECTED
== END 2023-05-22 13:05 | disposition home or self-care (01) ==
LOC: ANHED 21:10 → ANH3MEDSUR 22:16
PROVIDERS: Nurse Practitioner; Physician Assistant; Admitting Provider Family Medicine; Emergency Provider Emergency Medicine; PCP Internal Medicine; Visit Provider Hospitalist
DX: I95.1 Orthostatic hypotension (principal); N17.9 Acute kidney failure, unspecified; I12.9 Hypertensive chronic kidney disease with stage 1 through stage 4 chronic kidney disease, or unspecified chronic kidney disease; E11.22 Type 2 diabetes mellitus with diabetic chronic kidney disease; N18.30 Chronic kidney disease, stage 3 unspecified; E03.9 Hypothyroidism, unspecified; K52.9 Noninfective gastroenteritis and colitis, unspecified; E86.0 Dehydration; K21.9 Gastro-esophageal reflux disease without esophagitis; E78.5 Hyperlipidemia, unspecified; R63.0 Anorexia; Z68.33 Body mass index [BMI] 33.0-33.9, adult; E83.39 Other disorders of phosphorus metabolism; Z90.49 Acquired absence of other specified parts of digestive tract; I45.10 Unspecified right bundle-branch block; I70.0 Atherosclerosis of aorta; K42.9 Umbilical hernia without obstruction or gangrene; N40.0 Benign prostatic hyperplasia without lower urinary tract symptoms; Z93.2 Ileostomy status; K76.0 Fatty (change of) liver, not elsewhere classified; Z87.891 Personal history of nicotine dependence; F10.90 Alcohol use, unspecified, uncomplicated; Z20.822 Contact with and (suspected) exposure to COVID-19; Z79.82 Long term (current) use of aspirin; Z79.4 Long term (current) use of insulin; Z79.899 Other long term (current) drug therapy; Z79.84 Long term (current) use of oral hypoglycemic drugs
CPT/HCPCS: 36415; 71046; 74176; 80048; 80053; 82274; 82948; 83036; 83735; 83880; 84100; 85025; 85027; 87045; 87269; 87272; 87427; 87449; 87493; 87637; 87798; 93005; 93306; 96360; 96361; 96365; 96366; 99285; A9270; G0378; J1815; J7030; J7050; J7120

== ENCOUNTER 2023-12-02 15:28 | Outpatient (CLI) | payer MEDICARE, SELFPAY ==
--- NOTE | ~2023-12-02 | XR_ITS ---
3 VIEWS THORACIC SPINE Ordering provider: Jolynn Moses, GASOLINE ATTENDANT-C History: . LOW BACK PAIN . Comparison: None. FINDINGS: VERTEBRAL BODIES: Normal height and alignment. No visible fracture or subluxation. Degenerative aldana es. DISK SPACES: Normal. SOFT TISSUES: Normal. IMPRESSION: No acute osseous abnormality of the thoracic spine. Reviewed, dictated and finalized at location A.
--- NOTE | ~2023-12-02 | XR_ITS ---
[id number] Ordering provider: Jolynn Moses, DIGITAL ART DIRECTOR-C History: . Pain Rt ribs . Comparison: None. FINDINGS: BONES: Highly suggestive fracture in the right fifth and 6 rib anteriorly.. LUNGS: No effusions or infiltrates. No pneumothorax. SOFT TISSUES: Normal. IMPRESSION: Highly suggestive fracture of the anterior right fifth and sixth ribs. Reviewed, dictated and finalized at location A.
== END 2023-12-02 15:29 ==
PROVIDERS: PCP Internal Medicine; Visit Provider Nurse Practitioner Family
DX: R07.81 Pleurodynia (principal); R91.8 Other nonspecific abnormal finding of lung field
CPT/HCPCS: 71101; 72070

== ENCOUNTER 2024-08-10 10:06 | Outpatient (CLI) | payer MEDICARE, SELFPAY ==
--- NOTE | ~2024-08-10 | XR_ITS ---
Clinical Indication: Cough, fatigue PA and lateral views of the chest: Comparison: 05/22/2023 Findings: The lungs are clear, without evidence of focal consolidation or pleural effusion. Cardiome diastinal silhouette is within normal limits. Bones and soft tissues are unremarkable. Impression: Normal chest. Reviewed, dictated and finalized at [facility]. Impression: Normal chest.
== END 2024-08-10 10:07 | disposition home or self-care (01) ==
PROVIDERS: PCP Physician Assistant; Visit Provider Physician Assistant
DX: R05.1 Acute cough (principal)
CPT/HCPCS: 71046